=== PATIENT | female | born 1990 | race Two or more races ===

== ENCOUNTER 2023-10-19 11:08 | Emergency (ER) | payer OTHER ==
[~2023-10-19] VITALS: Ht 162.6 cm; Wt 59.0 kg
[2023-10-19] MEDS ORDERED: RINGERS SOLUTION,LACTATED 1,000 ML IV STA (12:28)
[2023-10-19] MEDS ORDERED: ONDANSETRON HCL 2 MG/ML VIAL IV ONE (12:30)
[2023-10-19] MEDS ORDERED: ONDANSETRON HCL 2 MG/ML VIAL ONE (12:39)
[2023-10-19 13:06] LABS: HEMATOCRIT 42.7 % (36.0-45.00); HEMOGLOBIN 14.6 g/dL (12.0-15.00); MEAN CELL VOLUME 88.1 fL (80.00-100.00); MEAN CORPUSCULAR HEMOGLOBIN 30.1 pg (27.00-32.0); MEAN CORPUSCULAR HGB CONC 34.1 g/dl (32.0-36.0); PLATELET COUNT 273 K/uL (150-450); RED BLOOD COUNT 4.85 M/uL (4.00-6.00); RED CELL DISTRIBUTION WIDTH 14.2 % (11.5-14.5)
[2023-10-19 13:38] LABS: CALCIUM 9.6 mg/dL (8.5-10.1); CREATININE SERUM 0.78 mg/dL (0.55-1.02); GFR 84.04; POTASSIUM 4.22 mEq/L (3.5-5.1)
[2023-10-19 15:33] LABS: PH,URINE 5.5 (5.0-8.0); URINE APPEARANCE Clear; URINE BILIRRUBIN Negative (NEGATIVE); URINE BLOOD Negative; URINE COLOR Yellow; URINE GLUCOSE Negative (NEGATIVE); URINE LEUKOCYTE Negative; URINE NITRATE Negative; URINE PROTEIN Negative (NEGATIVE); URINE UROBILINOGEN 0.2 E.U./dl
[2023-10-19 15:37] LABS: URINE BACTERIA 186.4 uL (0.0-1933); URINE EPITHELIAL CELLS 7.3 uL (0.0-38.8); URINE WBC 2.7 uL (0.0-23.2)
[2023-10-19 15:46] VITALS: BP 121/79; O2SAT 100
[2023-10-19 16:13] LABS: URINE KETONE 40 (NEGATIVE); URINE RBC 1.3 uL (0.0-20.8)
[2023-10-19] MEDS ORDERED: FAMOTIDINE/PF 20 MG in 0.9 % SODIUM CHLORIDE 8 ML IV PUSH STA (16:52)
[2023-10-19] MEDS ORDERED: PEPCID AC20 MG PO (16:55)
[2023-10-19] MEDS ORDERED: ONDANSETRON ODT8 MG PO (16:55)
[2023-10-19] MEDS ORDERED: DIPHENOXYLATE HCL/ATROPINE 1 UDTAB TABLET PO ONE (17:00)
[2023-10-19] MEDS ORDERED: FAMOTIDINE/PF 20 MG/2 ML VIAL ONE (17:13)
== END 2023-10-19 17:22 | disposition home or self-care (01) ==
LOC: ER 11:09
PROVIDERS: General Practice
DX: K52.89 Other specified noninfective gastroenteritis and colitis (principal)